=== PATIENT | female | born 1990 | race Caucasian/White ===

== ENCOUNTER 2016-09-04 16:50 | Inpatient (IN) | payer BC ==
[~2016-09-04] VITALS: Ht 172.7 cm; Wt 108.9 kg
[2016-09-04 17:30] LABS: HEMOGLOBIN 13.2 gm/dl (12.3-15.3); RED BLOOD COUNT 4.19 M/UL (4.00-5.10); WHITE BLOOD COUNT 11.1 K/UL (4.5-11.0)
[2016-09-06 03:20] LABS: HEMOGLOBIN 10.5 gm/dl (12.3-15.3)
[2016-09-07] MEDS ORDERED: IBUPROFEN600 MG PO (15:35)
== END 2016-09-07 15:29 | disposition home or self-care (01) | DRG 765 ==
LOC: GENOP 16:50 → OB 17:07
PROVIDERS: ADMIT Obstetrics & Gynecology
PROC: 0U7C7ZZ Dilation of Cervix, Via Natural or Artificial Opening (ICD-10-PCS; principal; 2016-09-04)
PROC: 10H07YZ Insertion of Other Device into Products of Conception, Via Natural or Artificial Opening (ICD-10-PCS; 2016-09-05)
PROC: 4A1H7CZ Monitoring of Products of Conception, Cardiac Rate, Via Natural or Artificial Opening (ICD-10-PCS; 2016-09-05)
PROC: 10907ZC Drainage of Amniotic Fluid, Therapeutic from Products of Conception, Via Natural or Artificial Opening (ICD-10-PCS; 2016-09-05)
PROC: 3E033VJ Introduction of Other Hormone into Peripheral Vein, Percutaneous Approach (ICD-10-PCS; 2016-09-05)
PROC: 10D00Z1 Extraction of Products of Conception, Low, Open Approach (ICD-10-PCS; 2016-09-05)
PROC: 3E0234Z Introduction of Serum, Toxoid and Vaccine into Muscle, Percutaneous Approach (ICD-10-PCS; 2016-09-07)
DX: O48.0 Post-term pregnancy (principal); O86.4 Pyrexia of unknown origin following delivery; O75.81 Maternal exhaustion complicating labor and delivery; O62.1 Secondary uterine inertia; Z3A.40 40 weeks gestation of pregnancy; Z37.0 Single live birth; N83.201 Unspecified ovarian cyst, right side; Z83.3 Family history of diabetes mellitus; Z82.49 Family history of ischemic heart disease and other diseases of the circulatory system; Z80.9 Family history of malignant neoplasm, unspecified; Z84.89 Family history of other specified conditions; Z88.8 Allergy status to other drugs, medicaments and biological substances; Z41.1 Encounter for cosmetic surgery; Z23 Encounter for immunization
CPT/HCPCS: 36415; 81001; 82800; 85014; 85018; 85025; 90715; C9113; J0690; J1580; J2210; J2274; J2405; J2590; J2765; J2795; J3010; J7050; J7070; J7120